=== PATIENT | female | born 1980 | race Caucasian/White ===

== ENCOUNTER 2018-05-21 13:58 | Emergency (ER) | payer BC ==
[~2018-05-21] VITALS: Ht 170.2 cm; Wt 86.2 kg
[2018-05-21 14:00] VITALS: BP_SYST 117
--- NOTE | 2018-05-21 14:00 | NUR ---
BROUGHT BACK TO BED #8 AND TRIAGED, REPORT GIVEN TO RONY
--- NOTE | 2018-05-21 14:10 | NUR ---
ER at bedside examining patient.
--- NOTE | 2018-05-21 14:10 | NUR ---
patient arrived from home with c/o right breast pain x 4. patient is x 45 days. patient is actively . patients breast is red hard and painful to the touch. patient denies discolored discharge of any kind. patient is not taking any medication for pain at this time. no other complaint or injury at this time.
[2018-05-21 14:30] VITALS: BP_SYST 117
--- NOTE | 2018-05-21 14:30 | NUR ---
Patient given written and verbal discharge instructions and verbalizes understanding. ER MD discussed with patient the results and treatment provided. Patient in stable condition. ID arm band removed. Rx of Keflex given. Patient educated on pain management and to follow up with PMD. Pain Scale 0/10. Opportunity for questions provided and answered. Medication side effect fact sheet provided.
== END 2018-05-21 14:30 | disposition home or self-care (01) ==
LOC: SED 13:58
DX: N61.0 Mastitis without abscess (principal); R50.9 Fever, unspecified
CPT/HCPCS: 99283